=== PATIENT | female | born 1965 | race Caucasian/White ===

== ENCOUNTER 2021-01-26 12:27 | Outpatient (CLI) | payer OTHER, SELFPAY ==
--- NOTE | ~2021-01-26 | MMUS_ITS ---
EXAMINATION: MM diagnostic joseph BI w ligia, US breast LT complete HISTORY: Left breast pain with rash TECHNIQUE: Additional 3-D tomosynthesis images of the breasts were performed and synthetic 2-D images were generated. CAD analysis was submitted and interpreted. High resolution complete left breast ult rasound was performed. COMPARISON: No prior studies for comparison. BREAST PARENCHYMAL COMPOSITION: Breast composed of scattered areas of fibroglandular density. FINDINGS: MAMMOGRAPHIC FINDINGS: There are no suspicious masses, calcifications or architectural distortion in either breast to sugges t malignancy. ULTRASOUND: Complete left breast ultrasound: Normal heterogeneous echotexture without focal solid or cystic mass. IMPRESSION: 1. No evidence for malignancy in either breast. 2. Routine yearly screening mammogram and regular clinical breast examination are recommended. BI-RADS Category 1: Negative Reviewed, dictated and finalized at location A. IMPRESSION: 1. No evidence for malignancy in either breast. 2. Routine yearly screening mammogram and regular clinical breast examination a re recommended. BI-RADS Category 1: Negative
== END 2021-01-26 12:28 | disposition home or self-care (01) ==
LOC: ANHIMG 12:28
PROVIDERS: PCP Family Medicine; Visit Provider Physician Assistant Medical
DX: N63.25 Unspecified lump in the left breast, overlapping quadrants (principal)
CPT/HCPCS: 76641; 77062; 77066; G0279

== ENCOUNTER → 2021-05-04 10:30 | Outpatient (CLI) | payer OTHER, SELFPAY ==
--- NOTE | ~2021-05-04 | XR_ITS ---
EXAMINATION: HAND-DUSTIN ARTHRITIS 3+VIEWS DATE: 05/04/2021 11:47 INDICATION: Bilateral hand joint pain, stiffness and occasional swelling. TECHNIQUE: Posteroanterior, lateral, and oblique views of the left and of the right hands as well as a ballcatchers view of both hands were obtained. COMPARISON: None. FINDINGS: 2-3 mm ulnar minus variance at the bilateral wrists. Alignment is otherwise normal at both hands. 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 No fracture. Joint spaces appear relatively preserved. No erosions. IMPRESSION: 1. Mild bilateral ulnar minus variance. 2. Correlation between the left capitate and trapezoid. Reviewed, dictated and finalized at location B.
--- NOTE | ~2021-05-04 | DEXA_ITS ---
Bone Density Report Name: Brigitte Potts Age: 56 Sex: Female Ethnicity: White Date of : 1965 Indication: osteopenia; parental hip fracture; postmenopausal Referring Provider: BELLA SCALES Study: Bone densitometry was performed. Exam Date: May 04, 2021 Accession number: [id number] Bone Density: Region BMD T-score Z-score Classification AP Spine (L1-L4) 0.819 -2.1 -1.0 Osteopenia Femoral Neck (Left) 0.627 -2.0 -0.9 Osteopenia Total Hip (Left) 0.720 -1.8 -1.1 Osteopenia Femoral Neck (Right) 0.620 -2.1 -1.0 Osteopenia Total Hip (Right) 0.697 -2.0 -1.3 Osteopenia Total Hip Mean 0.709 -1.9 -1.2 Osteopenia World Health Organization criteria for BMD impression classify patients as: Normal (T-score at or above -1.0), Osteopenia (T-score between -1.0 and -2.5), or Osteoporosis (T-score at or below -2.5). 10-year Fracture Risk(1): Major Osteoporotic Fracture 14% Hip Fracture 1.0% Reported Risk Factors: [place] (), Neck BMD=0.620, BMI=21.8, parental fracture (1) FRAX(R) Version 3.08. Fracture probability calculated for an untreated patient. Fracture probability may be lower if the patient has received treatment. Previous Exams: Region Exam Age BMD T-score BMD Change BMD Change Date g/cm2 vs Baseline vs Previous AP Spine(L1-L4) 05/04/2021 56 0.819 -2.1 -0.148* -0.012 11/27/2018 53 0.831 -2.0 -0.136* -0.136* 10/21/2010 45 0.967 -0.7 Total Hip(Left) 05/04/2021 56 0.720 -1.8 -0.072* -0.004 11/27/2018 53 0.724 -1.8 -0.068* -0.068* 10/21/2010 45 0.793 -1.2 Total Hip(Right) 05/04/2021 56 0.697 -2.0 -0.106* -0.003 11/27/2018 53 0.701 -2.0 -0.103* -0.103* 10/21/2010 45 0.803 -1.1 *Denotes significance at 95% confidence level, LSC for AP Spine = 0.022 g/cm2, LSC for Total Hip = 0.027 g/cm2 Clinical Information Provided by Patient: Parent has had a hip fracture Has used the following medications: Vitamin D, [place] Thyroid Patient maximum height was 70.5 Menopause Age: 45 Drinks caffeinated beverages Onset of menses at age 15 Number of children 2 Impression: The patient has low bone mass, based on the Total Spine T-score. The patient has an estimated ten-year risk of hip fracture of 1% and an estimated ten-year risk of major fracture of 14%, based on the WHO FRAX algorithm. The patient has risk fact
--- NOTE | ~2021-05-04 | XR_ITS ---
XR ribs LT 2V w CXR 2V DATE: 05/04/2021 11:47 INDICATION: Costochondral junction syndrome. Costochondral rib pain. TECHNIQUE: PA and lateral chest. 3 views of the left ribs. COMPARISON: None FINDINGS: Normal heart size. No hilar or mediastinal enlargement. Bilateral hyperinflation. No pulmonary infiltrate or consolidation, pleural effusion or pulmonary vas cular congestion or pneumothorax is detected. There is diffuse osteopenia. No left rib fracture or bone destruction. IMPRESSION: Bilateral hyperinflation; otherwise no active cardiopulmonary disease Diffuse osteopenia No left rib fracture or bone destruction Reviewed, dictated and finalized at location A. IMPRESSION: Bilateral hyperinflation; otherwise no active cardiopulmonary disea se Diffuse osteopenia No left rib fracture or bone destruction
== END ==
PROVIDERS: PCP Family Medicine; Visit Provider Family Medicine
DX: Z78.0 Asymptomatic menopausal state (principal); M94.0 Chondrocostal junction syndrome [Tietze]; M85.88 Other specified disorders of bone density and structure, other site; M85.851 Other specified disorders of bone density and structure, right thigh; M85.852 Other specified disorders of bone density and structure, left thigh
CPT/HCPCS: 71046; 71100; 73130; 77080

== ENCOUNTER 2023-08-23 08:07 | Outpatient (CLI) | payer OTHER, SELFPAY ==
--- NOTE | ~2023-08-23 | DEXA_ITS ---
Bone Density Report Name: REBEKA ADAN Age: 58 Sex: Female Ethnicity: White Date of : 1965 Indication: postmenopausal; screening for osteoporosis; height loss; Referring Provider: RIZWANA HOLLIDAY Study: Bone densitometry was performed. Exam Date: August 23, 2023 Accession number: [id number] Bone Density: Region BMD T-score Z-score Classification AP Spine(L1-L4) 0.793 -2.3 -1.1 Osteopenia Femoral Neck (Left) 0.634 -1.9 -0.8 Osteopenia Total Hip (Left) 0.749 -1.6 -0.8 Osteopenia Femoral Neck (Right) 0.611 -2.1 -1.0 Osteopenia Total Hip (Right) 0.710 -1.9 -1.1 Osteopenia Total Hip Mean 0.730 -1.8 -1.0 Osteopenia World Health Organization criteria for BMD impression classify patients as: Normal (T-score at or above -1.0), Osteopenia (T-score between -1.0 and -2.5), or Osteoporosis (T-score at or below -2.5). 10-year Fracture Risk(1): Major Osteoporotic Fracture 8.7% Hip Fracture 1.2% Reported Risk Factors: [place] (), Neck BMD=0.611, BMI=23.0 (1) FRAX(R) Version 3.08. Fracture probability calculated for an untreated patient. Fracture probability may be lower if the patient has received treatment. Clinical Information Provided by Patient: Has used the following medications: Vitamin D Patient maximum height was 71 Menopause Age: 41 Drinks caffeinated beverages Onset of menses at age 16 Number of children 2 Impression: The patient has low bone mass, based on the Total Spine T-score. The patient has an estimated ten-year risk of hip fracture of 1.2% and an estimated ten-year risk of major fracture of 8.7%, based on the WHO FRAX algorithm. Discussion: BONE DENSITY IS LOW AT ONE OR MORE SKELETAL SITES. This patient's lowest T-score is low at one or more skeletal sites. It meets the World Health Organization's (WHO) criteria for ?low bone mass? (T-score between -1.0 and -2.5). The patient's 10-year risk of fracture as calculated by FRAX is less than the threshold where pharmacological therapy is recommended by the National Osteoporosis Foundation (NOF). However, all treatment decisions require clinical judgment and consideration of individual patient factors, including patient preferences, comorbidities, previous drug use, risk factors not captured in the FRAX model (e.g., frailty, falls, vitamin D deficiency, increased bone turnover, interval significant decline in bone density) and possible under or overestimation of fracture risk by FRAX. The patient should follow a healthful lifestyle (good nutrition with adequate calcium and vitamin D, and appropriate weight-bearing exercise). Follow-Up: Consider repeating this study in 2 to 3 years to reassess this patient's status, or sooner if there is some new clinical indication. Reported by: FARHAT on 08/23/2023 8:28:00 AM
== END 2023-08-23 08:08 | disposition home or self-care (01) ==
PROVIDERS: PCP Family Medicine; Visit Provider Obstetrics & Gynecology
DX: M85.89 Other specified disorders of bone density and structure, multiple sites (principal)
CPT/HCPCS: 77080

== ENCOUNTER 2024-07-25 09:17 | Outpatient (CLI) | payer OTHER, SELFPAY ==
--- NOTE | ~2024-07-25 | US_ITS ---
EXAMINATION: US thyroid DATE: 07/25/2024 09:36 INDICATION: Nontoxic multinodular goiter. TECHNIQUE: Multiple ultrasound images of the thyroid were obtained. COMPARISON: None. FINDINGS: The right thyroid lobe measures 6.1 x 1.7 x 2.2 cm. The left thyroid lobe is absent. In the right t hyroid lobe, there is a 7 mm hypoechoic, wider than tall nodule with ill-defined margin and punctate echogenic foci (TI-RADS TR5). In the right thyroid lobe, there is a 10 mm solid, hypoechoic, wider th an tall nodule with smooth margin without echogenic foci (TR4). In the right thyroid lobe, there is a 12 mm solid, hypoechoic, wider than tall nodule with irregular margin and punctate echogenic foci (T R5). IMPRESSION: 1. Multinodular goiter. Consider ultrasound-guided fine-needle aspiration of the 12 mm right thyroid nodule. Reviewed, dictated and finalized at location A. MILL SUPERVISOR IMPRESSION: 1. Multinodular goiter. Consider ultrasound-guided fine-needle aspiration of th e 12 mm right thyroid nodule.
== END 2024-07-25 09:18 | disposition home or self-care (01) ==
PROVIDERS: PCP Family Medicine; Visit Provider Family Medicine
DX: E04.2 Nontoxic multinodular goiter (principal)
CPT/HCPCS: 76536

== ENCOUNTER 2024-08-22 12:56 | Outpatient (CLI) | payer OTHER, SELFPAY ==
--- NOTE | ~2024-08-22 | US_ITS ---
EXAMINATION: US FNA w image guidance DATE: 08/22/2024 13:54 INDICATION: Multinodular goiter TECHNIQUE: A time-out was performed to verify the patient's name, date of , and procedure to be performed . The procedure and its benefits and risks were discussed with the patient. Risks specifically discus sed included bleeding and infection. The patient understood the risks and agreed to proceed. The neck was prepped and draped in the usual sterile manner. 3 mL 1% lidocaine was used for local anesthesia . 6 passes were made with a 25G needle into the lesion. Appropriate needle location was documented with continuous sonographic guidance. A sterile bandage was applied. There were no immediate compli cations. FINDINGS: Grayscale ultrasound images demonstrate biopsy needles advanced into the 1.2 cm TI RADS 5 nodule at t he deep inferior right thyroid lobe. IMPRESSION: 1. Successful ultrasound-guided fine needle aspiration of a 1.2 cm TI RADS 5 right thyroid nodule of concern. Reviewed, dictated and finalized at location A. DOFFER IMPRESSION: 1. Successful ultrasound-guided fine needle aspiration of a 1.2 cm TI RADS 5 r ight thyroid nodule of concern.
== END 2024-08-22 12:57 | disposition home or self-care (01) ==
PROVIDERS: PCP Family Medicine; Visit Provider Family Medicine
DX: E07.9 Disorder of thyroid, unspecified (principal)
CPT/HCPCS: 10005; 88172; 88173; 88305

== ENCOUNTER 2024-11-26 09:54 | Outpatient (CLI) | payer OTHER, SELFPAY ==
--- NOTE | ~2024-11-26 | MM_ITS ---
EXAMINATION: MM screening joseph BI w ligia HISTORY: Screening TECHNIQUE: Craniocaudal and mediolateral oblique 3-D tomosynthesis images were obtained and synthetic 2-D images were generated. CAD analysis was submitted and interpreted. COMPARISON: Comparison to multiple prior studies sequentially, with oldest reviewed study dated 11/01. BREAST PARENCHYMAL COMPOSITION: Not dense: There are scattered areas of fibroglandular density. FINDINGS: There is no evidence of suspicious mass, calcification, or architectural distortion to sugg est malignancy in either breast. There has been no suspicious interval change. IMPRESSION: 1. No mammographic evidence of malignancy. 2. Recommend routine screening mammography in one year. BI-RADS Category 1: Negative Reviewed, dictated and finalized at location B.
--- OUTSIDE RECORDS SUMMARY | 2024-11-26 11:13 | XMS_ITS | Clinical Summary ---
Author Organization [facility] Address [address] [place] [id number] Care Team Providers Care Human Services Assistant Name Role Phone Glenna Kerr MD Primary Care Provider + Allergies Active Allergy Reactions Criticality Noted Date Comments Penicillins Medications calcium carbonate-vitam in D3 500 mg(1,250mg) -400 unit tablet Take by mouth Active tjad-xceu-flu-y oz-gsp-cpna-hor [phone] mg tablet Take by mouth Active eszopiclone (LUNESTA) 1 mg tabletIndicatio ns:Insomnia Take 1 mg by mouth nightly Take immediately before bedtime PRN Active zolpidem (AMBIEN) 5 mg tabletIndicatio ns:Sleep-Onset Insomnia Take 5 mg by mouth nightly as needed for sleep Active triamcinolone (NASACORT) 55 mcg nasal inhaler Administer 2 sprays into each nostril daily 16.9 mL 11 06/27/ 9 Active Active Problems Problem Noted Date Diagnosed Date Iron deficiency anemia 10/20/2018 Chronic fatigue 10/20/2018 Thyroid nodule 10/20/2018 Surgical History Surgery Date Site/Laterality Comments TONSILLECTOMY Medical History Medical History Date Comments Hyperthyroidism Post-nasal drip Palpitations Family History Medical History Relation Name Comments Diabetes Brother No Known Problems Father Stroke Maternal Grandfather No Known Problems Mother Heart disease Paternal Grandmother Relation Name Status Comments Brother Father Maternal Grandfather Mother Paternal Grandmother Social History Tobacco Use Types Packs/Day Years Used Date Smoking Tobacco: Never Smokeless Tobacco: Never Alcohol Use Standard Drinks/Week Comments Yes 0 (1 standard drink = 0.6 oz pur e alcohol) Comments Unknown Sex and Gender Information Value Date Recorded Sex Assigned at Not on file Legal Sex Female 8:58 AM SEX THERAPIST Gender Identity Not on file Sexual Orientation Not on file Obstetrics History Last Filed Vital Signs Vital Sign Reading Time Taken Comments Blood Pressure 139/84 06/27/2019 2:42 PM CDT Pulse 71 10/20/2018 10:15 AM SEX THERAPIST Temperature - - Respiratory Rate - - Oxygen Saturation - - Inhaled Oxygen Concentration - - Weight 72.6 kg (160 lb) 11/13/2021 11:58 AM SEX THERAPIST Height 177.8 cm (5' 10 ) 11/13/2021 11:58 AM SEX THERAPIST Body Mass Index 22.96 11/13/2021 11:58 AM SEX THERAPIST Plan of Treatment Not on file Insurance [facility] HMO [facility] HMO JANEY GONSALES [id number] Care Teams Human Services Assistant Relationship Specialty Start Date End Date Glenna Kerr MD PCP - General Family Medicine 07/28/18
--- OUTSIDE RECORDS SUMMARY | 2024-11-26 11:13 | XMS_ITS | Patient Health Summary ---
Author Organization [facility] Address [address] [place] [address] Care Team Providers Care Residential Appliance Repair Technician Name Role Phone Unavailable Primary Care Provider Unavailabl e Note from [facility],non-owned Affiliates and Associated Physician Practices is amultiple site organization consisting of ambulatory clinics and hospital sitesin [place], [place], [place]. This disclosure is being madepursuant to the Care Everywhere program and may not contain all information available regarding this patient. Last updated 18.[facility] [employer] Social History Tobacco Use Types Packs/Day Years Used Date Smoking Tobacco: Never Assessed Sex and Gender Information Value Date Recorded Sex Assigned at Not on file Gender Identity Not on file Sexual Orientation Not on file Procedures * CYTOLOGY SMEAR PAP(Performed 06/18/1997) * CYTOLOGY PAP MOLASSES FEED MIXER(Performed 06/21/1996) Results * CYTOLOGY SMEAR PAP (06/18/1997 11:54 AM CDT) Result CASE NUMBER [id number] Comment: ORDERING PHYSICIAN CHELA BEARD SPECIMEN TYPE PAP Smear Date 06/18/1997 Procedure Cervical/Endocervical, 1 smear received Specimen Adequacy Satisfactory for Evaluation but Limited No endocervical component in a non-atrophic cervical smear. Categorization Within Normal Limits Snomed. 07/10/1997 1158 <2> Dragline Oiler Tam David(ASCP) PAP Footnote The PAP smear is only a screening procedure to aid in the detection of cervical cancer and its precursors. It is not a diagnostic procedure and should not be used as the sole means to detect cervical cancer. Both false negative and false positive results have been experienced. MISCELLANEOUS SAMPLES / Unknown 06/18/1997 11:54 AM CDT 06/19/1997 11:54 AM CDT Historical Provider LAB - PATHOLOGY/C YTOLOGY ORDERABLES * CYTOLOGY PAP MOLASSES FEED MIXER (06/21/1996 7:30 AM CDT) Result CASE NUMBER [id number] Comment: ORDERING PHYSICIAN CHELA BEARD SPECIMEN TYPE PAP Smear Date 06/19/1996 Procedure Cervical/Endocervical Specimen Adequacy Satisfactory for Evaluation Categorization Within Normal Limits Dragline Oiler Tam David(ASCP) MISCELLANEOUS SAMPLES / Unknown 06/21/1996 7:30 AM CDT 06/21/1996 7:30 AM CDT Historical Provider LAB - PATHOLOGY/C YTOLOGY ORDERABLES
--- OUTSIDE RECORDS SUMMARY | 2024-11-26 11:13 | XMS_ITS | Referral Summary ---
Author Organization [facility] Address [address] [place] [address] Care Team Providers Care Weight Loss Consultant Name Role Phone Unavailable Primary Care Provider Unavailabl e Source Comments [facility],non-owned Affiliates and Associated Physician Practices is amultiple site organization consisting of ambulatory clinics and hospital sitesin [place], [place], [place] and [place]. This disclosure is being madepursuant to the Care Everywhere program and may not contain all information available regarding this patient. Last updated 18.[facility] [employer] Social History Tobacco Use Types Packs/Day Years Used Date Smoking Tobacco: Never Assessed Sex and Gender Information Value Date Recorded Sex Assigned at Not on file Gender Identity Not on file Sexual Orientation Not on file Plan of Treatment Not on file Procedures Procedure Name Priority Date/Time Associated Diagnosis Comments CYTOLOGY SMEAR PAP ASTRID 06/18/1997 11 :54 AM CDT from Last 3 Months or Most Recently Relevant to Health Maintenance Results * CYTOLOGY SMEAR PAP (06/18/1997 11:54 AM CDT) Result CASE NUMBER [id number] Comment: ORDERING PHYSICIAN CHELA BEARD SPECIMEN TYPE PAP Smear Date 06/18/1997 Procedure Cervical/Endocervical, 1 smear received Specimen Adequacy Satisfactory for Evaluation but Limited No endocervical component in a non-atrophic cervical smear. Categorization Within Normal Limits Snomed. 07/10/1997 1158 <2> Coil Maker Tam David(ASCP) PAP Footnote The PAP smear [...] Historical Provider LAB - PATHOLOGY/C YTOLOGY ORDERABLES from Last 3 Months or Most Recently Relevant to Health Maintenance Simi Potts Personal/Famil y Self 1965
--- OUTSIDE RECORDS SUMMARY | 2024-11-26 11:13 | XMS_ITS | Referral Summary ---
Author Organization [facility] Address [address] [place] [id number] Care Team Providers Care Pot Puncher Name Role Phone Glenna Kerr MD Primary Care Provider + Allergies Active Allergy Reactions Criticality Noted Date Comments Penicillins Medications calcium carbonate-vitam in D3 500 mg(1,250mg) -400 unit tablet Take by mouth Active kgas-yebi-txe-y kx-cdj-wrrh-hor [phone] mg tablet Take by mouth Active eszopiclone (LUNESTA) 1 mg tabletIndicatio ns:Insomnia Take 1 mg by mouth nightly Take immediately before bedtime PRN Active zolpidem (AMBIEN) 5 mg tabletIndicatio ns:Sleep-Onset Insomnia Take 5 mg by mouth nightly as needed for sleep Active triamcinolone (NASACORT) 55 mcg nasal inhaler Administer 2 sprays into each nostril daily 16.9 mL 11 9 Active Active Problems Problem Noted Date Diagnosed Date Iron deficiency anemia 10/20/2018 Chronic fatigue 10/20/2018 Thyroid nodule 10/20/2018 Social History Tobacco Use Types Packs/Day Years Used Date Smoking Tobacco: Never Smokeless Tobacco: Never Alcohol Use Standard Drinks/Week Comments Yes 0 (1 standard drink = 0.6 oz pur e alcohol) Comments Unknown Sex and Gender Information Value Date Recorded Sex Assigned at Not on file Legal Sex Female 8:58 AM JOB CHECKER Gender Identity Not on file Sexual Orientation Not on file Last Filed Vital Signs Vital Sign Reading Time Taken Comments Blood Pressure 139/84 06/27/2019 2:42 PM CDT Pulse 71 10/20/2018 10:15 AM JOB CHECKER Temperature - - Respiratory Rate - - Oxygen Saturation - - Inhaled Oxygen Concentration - - Weight 72.6 kg (160 lb) 11/13/2021 11:58 AM JOB CHECKER Height 177.8 cm (5' 10 ) 11/13/2021 11:58 AM JOB CHECKER Body Mass Index 22.96 11/13/2021 11:58 AM JOB CHECKER Plan of Treatment Not on file Insurance [facility] Care Teams Pot Puncher Relationship Specialty Start Date End Date Glenna Kerr MD PCP - General Family Medicine 07/28/18
--- OUTSIDE RECORDS SUMMARY | 2024-11-26 11:13 | XMS_ITS | Clinical Summary ---
Author Organization [facility] Address [address] [place] [phone] Phone Care Team Providers Care Corporate Buyer Name Role Phone Glenna Kerr MD Primary Care Provider [phone] Allergies Active Allergy Reactions Criticality Noted Date Comments Penicillins Unknown 01/27/2021 Medications Ambien 10 mg tablet Take 10 mg by mouth daily at bedtime. 12/17/2020 Active HYDROcodone-swetha taminophen (NORCO) 5-325 mg tabletIndicatio ns:Left thyroid nodule Take 1 Tablet by mouth every 4 hours as needed for Pain. Max Daily Amount: 6 Tablets 20 Tablet 02/19/2021 10:13 AM CDT 02/19/2021 Active SUMAtriptan (IMITREX) 50 mg tablet 02/10/2021 Active Active Problems No known active problems Family History Medical History Relation Name Comments Thyroid Disease Father Osvaldo Thyroid Disease Paternal Grandmother Jayde Goit er Cancer Sister Jayda, my sister Relation Name Status Comments Father Osvaldo Paternal Grandmother Jayde Sister Jayda, my sister Social History Tobacco Use Types Packs/Day Years Used Date Smoking Tobacco: Never Smokeless Tobacco: Never Alcohol Use Standard Drinks/Week Comments Yes 0 (1 standard drink = 0.6 oz pur e alcohol) socially Comments No Sex and Gender Information Value Date Recorded Sex Assigned at Not on file Legal Sex Female 5:53 AM PROPELLANT ASSEMBLER Gender Identity Not on file Sexual Orientation Not on file Last Filed Vital Signs Vital Sign Reading Time Taken Comments Blood Pressure 145/92 02/19/2021 7:42 AM CDT Pulse 69 02/19/2021 7:42 AM CDT Temperature 36 C (96.8 F) 02/19/2021 7:42 AM CDT Respiratory Rate 16 02/19/2021 7:42 AM CDT Oxygen Saturation 96% 02/19/2021 7:42 AM CDT Inhaled Oxygen Concentration - - Weight 70.3 kg (155 lb) 02/18/2021 9:02 AM CDT Height 177.8 cm (5' 10 ) 02/18/2021 9:02 AM CDT Body Mass Index 22.24 02/18/2021 9:02 AM CDT Plan of Treatment Health Maintenance Due Date Last Done Comments DTAP/TDAP/TD VACCINES (1 - Tdap) 1985 HEPATITIS B VACCINES (1 of 3 - 19+ 3-dose series) 1985 CERVICAL CANCER SCREENING 1996 BREAST CANCER SCREENING 2006 COLORECTAL SCREENING 2011 Colorectal Cancer Screening 2011 FIT-DNA Q 3 years 2011 FIT/FOBT Q 1 year 2011 Flex Sig/CT Colonography Q 5 years 2011 ZOSTER VACCINE (1 of 2) 2016 INFLUENZA VACCINE (#1) 2024 06/23/2020 PNEUMOCOCCAL VACCINE 0-49 YEARS Aged Out No longer eligible based on patient's age to complete this topic Insurance [employer] CHOICE POS II RX [facility] [employer] Advance Directives For more information, please contact: [phone] * Full Code (Latest Code Status on File) Date Activated Date Inactivated Comments 02/18/2021 1:00 PM 02/19/2021 12:21 PM * Full Code Date Activated Date Inactivated Comments 02/18/2021 9:04 AM 02/18/2021 1:00 PM Care Teams Corporate Buyer Relationship Specialty Start Date End Date Glenna Kerr MD PCP - General Family Practice 02/06/21
--- OUTSIDE RECORDS SUMMARY | 2024-11-26 11:13 | XMS_ITS | Clinical Summary ---
Author Organization [facility] Address [address] [place] [address] Care Team Providers Care Blood Bank Business Manager Name Role Phone Unavailable Primary Care Provider Unavailabl e Source Comments [facility],non-owned Affiliates and Associated Physician Practices is amultiple site organization consisting of ambulatory clinics and hospital sitesin [place], [place], [place] and [place]. This disclosure is being madepursuant to the Care Everywhere program and may not contain all information available regarding this patient. Last updated 18.[facility] [employer] Social History Tobacco Use Types Packs/Day Years Used Date Smoking Tobacco: Never Assessed Sex and Gender Information Value Date Recorded Sex Assigned at Not on file Gender Identity Not on file Sexual Orientation Not on file Plan of Treatment Health Maintenance Due Date Last Done Comments COLOGUARD (AGES 45-75) - COL ON CA SCREENING 1966 COLON MONITORING 1966 COLONOSCOPY - COLON CA SCREENING 1966 CT COLONOGRAPHY - COLON CA SCREENING 1966 Colorectal Cancer Screening 1966 FIT - COLON CA SCREENING 1966 FLEX SIG - COLON CA SCREENING 1966 LIPID TESTING 1966 MAMMOGRAM 1966 HIV SCREENING 1981 HEPATITIS C SCREENING 04/12/1984 DTAP/TDAP/TD VACCINES (1 - Tdap) 1985 HEPATITIS B VACCINE (1 of 3 - 19+ 3-dose series) 1985 PAP SMEAR 06/18/2000 06/18/1997, 06/21/1996 PNEUMOCOCCAL VACCINE 50+ (1 of 1 - PCV) 2016 ZOSTER VACCINE (1 of 2) 2016 COVID-19 VACCINE ( - 2023-2 5 season) 2024 INFLUENZA VACCINE (#1) 2024 DEPRESSION SCREENING 09/12/2024 HIB VACCINE Aged Out No longer eligi ble based on patient's age to complete this topic HPV VACCINE Aged Out No longer eligi ble based on patient's age to complete this topic MENINGOCOCCAL (Group B) VACCINE SHARED DECISION-MAKING Aged Out No longer eligible based on patient's age to complete this topic MENINGOCOCCAL GROUPS A/C/Y/W VACCINE Aged Out No longer eligible b ased on patient's age to complete this topic PNEUMOCOCCAL VACCINE Aged Out No long er eligible based on patient's age to complete this topic Procedures Procedure Name Priority Date/Time Associated Diagnosis [...] Within Normal Limits Snomed. 07/10/1997 1158 <2> Corrections Specialist Tam David(ASCP) PAP Footnote The PAP smear [...] or Most Recently Relevant to Health Maintenance Delroy, Brigitte Simon Personal/Famil y Self 1965
== END 2024-11-26 09:55 | disposition home or self-care (01) ==
LOC: ANHIMG 09:57
PROVIDERS: PCP Family Medicine; Visit Provider Obstetrics & Gynecology
DX: Z12.31 Encounter for screening mammogram for malignant neoplasm of breast (principal)
CPT/HCPCS: 77063; 77067

== ENCOUNTER 2025-03-28 10:29 | Outpatient (CLI) | payer OTHER, SELFPAY ==
--- OUTSIDE RECORDS SUMMARY | 2025-03-28 10:49 | XMS_ITS | Referral Summary ---
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 Gender Identity Not on file Sexual Orientation Not on file Last Filed Vital Signs Vital Sign Reading Time Taken Comments Blood Pressure 139/84 06/27/2019 2:42 PM CDT Pulse 71 10/20/2018 10:15 AM BELL CLERK Temperature - - Respiratory Rate - - Oxygen Saturation - - Inhaled Oxygen Concentration - - Weight 72.6 kg (160 lb) 11/13/2021 11:58 AM BELL CLERK Height 177.8 cm (5' 10) 11/13/2021 11:58 AM BELL CLERK Body Mass Index 22.96 11/13/2021 11:58 AM BELL CLERK Plan of Treatment Not on file Insurance [facility] Care Teams Wood Window And Door Craftsman Relationship Specialty Start Date End Date Glenna Kerr MD PCP - General Family Medicine 07/28/18
--- OUTSIDE RECORDS SUMMARY | 2025-03-28 10:49 | XMS_ITS | Clinical Summary ---
Author Organization [facility] Address [address] [place] [address] Care Team Providers Care Overlay Plastician Name Role Phone Unavailable Primary Care Provider Unavailabl e Source Comments [facility],non-owned Affiliates and Associated Physician Practices is amultiple site organization consisting of ambulatory clinics and hospital sitesin [place], [place], [place] and [place]. This disclosure is being madepursuant to the Care Everywhere program and may not contain all information available regarding this patient. 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 Gender Identity Not on file Sexual Orientation [...] of 3 - 19+ 3-dose series) 1985 PNEUMOCOCCAL VACCINE 50+ (1 of 1 - PCV) 2016 ZOSTER VACCINE (1 of 2) 2016 COVID-19 VACCINE ( - 2023-2 5 season) 2024 DEPRESSION SCREENING 09/12/2024 INFLUENZA VACCINE (#1) 2025 HIB VACCINE Aged Out No longer eligi ble based on patient's age to complete this topic HPV VACCINE Aged Out No longer eligi ble based on patient's age to complete this topic MENINGOCOCCAL (Group B) VACC INE SHARED DECISION-MAKING Aged Out No longer eligibl e based on patient's age to complete this topic MENINGOCOCCAL GROUPS A/C/Y/W VACCINE Aged Out No longer eligible b ased on patient's age to complete this [place] [id number]
--- OUTSIDE RECORDS SUMMARY | 2025-03-28 10:49 | XMS_ITS | Clinical Summary ---
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 Gender Identity Not on file Sexual Orientation Not on file Obstetrics History Last Filed Vital Signs Vital Sign Reading Time Taken Comments Blood Pressure 139/84 06/27/2019 2:42 PM CDT Pulse 71 10/20/2018 10:15 AM COUNTER WAITER Temperature - - Respiratory Rate - - Oxygen Saturation - - Inhaled Oxygen Concentration - - Weight 72.6 kg (160 lb) 11/13/2021 11:58 AM COUNTER WAITER Height 177.8 cm (5' 10) 11/13/2021 11:58 AM COUNTER WAITER Body Mass Index 22.96 11/13/2021 11:58 AM COUNTER WAITER Plan of Treatment Health Maintenance Due Date Last Done Comments Breast Cancer Screening-Mammogram 1966 Cervical Cancer Screening 1966 Colon Cancer Screening-Colonoscopy 1966 Depression Screening 1966 Hepatitis C Screening 1966 Hepatitis B Screening 1984 Regular Well Visit/Exam 18-64 1984 Zoster Vaccine (1 of 2) 2016 Influenza Vaccine (#1) 2025 DTaP/Tdap/Td Vaccine (2 - Td or Tdap) 12/07/2028 12/07/2018 Pneumococcal vaccine <65 Aged Out No longer eligible based on patient's age to complete this topic Insurance [employer] [facility] H[facility] Care Teams Inspector General Relationship Specialty Start Date End Date Glenna Kerr MD PCP - General Family Medicine 07/28/18
--- OUTSIDE RECORDS SUMMARY | 2025-03-28 10:49 | XMS_ITS | Clinical Summary ---
Author Organization [facility] Address [address] [place] [phone] Phone Care Team Providers Care Business Strategist Name Role Phone Glenna Kerr MD Primary Care Provider [phone] Allergies Active Allergy Reactions Criticality Noted Date [...] on file Legal Sex Female 5:53 AM BELL RINGER Gender Identity Not on file Sexual Orientation [...] 9:02 AM CDT Height 177.8 cm (5' 10) 02/18/2021 9:02 AM CDT Body Mass Index 22.24 02/18/2021 9:02 AM CDT Plan of Treatment Health Maintenance Due Date Last Done Comments DTAP/TDAP/TD VACCINES (1 - Tdap) 1985 HEPATITIS B VACCINES (1 of 3 - 19+ 3-dose series) 02/1985 HPV/Cotest (21-29) 1987 CERVICAL CANCER SCREENING 1996 HPV/Cotest (30-65) 1996 PAP SMEAR 1996 BREAST CANCER SCREENING 2006 COLORECTAL SCREENING 2011 Colorectal Cancer Screening 2011 FIT-DNA Q 3 years 2011 FIT/FOBT Q 1 year 2011 Flex Sig/CT Colonography Q 5 years 2011 ZOSTER VACCINE (1 of 2) 2016 INFLUENZA VACCINE (#1) 2025 06/23/2020 Insurance [employer] CHOICE POS II RX [facility] [employer] Advance Directives For more information, please contact: [phone] * Full Code (Latest Code Status on File) Date Activated Date Inactivated Comments 02/18/2021 1:00 PM 02/19/2021 12:21 PM * Full Code Date Activated Date Inactivated Comments 02/18/2021 9:04 AM 02/18/2021 1:00 PM Care Teams Business Strategist Relationship Specialty Start Date End Date Glenna Kerr MD PCP - General Family Practice 02/06/21
--- NOTE | 2025-04-10 12:00 | WPDHOLTEREM ---
Holter/Event Monitor Holter/Event Monitor Date of procedure: 03/28/25 Holter/Event Procedure: 3-7 Day Holter Monitor Indications: Palpitations Conclusion: 1. 7 days holter monitor on 03/28/25. 2. Predominant rhythm is sinus rhythm. HR range 45-194 bpm; average HR 71 bpm. HR at 45 bpm was on 04/03/25 at 3:11 am. 3. There are rare premature supraventricular complexes, rare supraventricular couplets, rare supraventricular triplets. There are 2 episodes of supraventricular tachycardia, fastest at 194 bpm and longest lasting 7 beats. 4. There are rare premature ventricular complexes and rare ventricular couplets. No ventricular tachycardia. 5. No significant pauses greater than 3 seconds. 6. Patient reports 10 episodes of symptoms of irregular beats which demonstrate sinus rhythm, HR range 76-116 bpm with 7 episodes with PAC's.
== END 2025-03-28 10:30 | disposition home or self-care (01) ==
LOC: ANHCARD 10:31
PROVIDERS: PCP Family Medicine; Visit Provider Student in an Organized Health Care Education/Training Program
DX: R00.2 Palpitations (principal)
CPT/HCPCS: 93242